=== PATIENT | female | born 1950 | race Caucasian/White ===

== ENCOUNTER 2018-09-27 21:19 | Observation (INO) | payer MEDICARE ==
[~2018-09-27] VITALS: Ht 154.9 cm; Wt 89.8 kg
[2018-09-27] MEDS ORDERED: CEFTRIAXONE SOD 1 GM VIAL IV SCH (21:45)
[2018-09-27] MEDS ORDERED: SODIUM CHLORIDE 0.9% 1000ML 1,000 ML IV SCH ×2 (21:45)
[2018-09-27] MEDS ORDERED: DIATRIZOATE MEGL/DIATRIZOA SOD 30 ML BTL PO ONE (21:46)
[2018-09-27 22:18] LABS: BASOPHILS % 0.5 % (0.0-1.0); EOSINOPHILS # (AUTO) 0.1 (0.0-0.4); EOSINOPHILS % 1.4 % (0.0-6.0); HEMATOCRIT 40.1 % (34.2-44.1); HEMOGLOBIN 13.2 g/dL (12.0-16.0); LYMPHOCYTES # (AUTO) 1.7 (1.0-3.2); LYMPHOCYTES % 21.2 % (18.0-39.1); MEAN CORPUSCULAR HEMOGLOBIN 29.4 pg (28-32); MEAN CORPUSCULAR HGB CONC 32.9 g/dL (31-35); MEAN CORPUSCULAR VOLUME 89.3 fL (81-99); MONOCYTES # (AUTO) 0.5 (0.2-0.8); MONOCYTES % 6.1 % (4.4-11.3); NEUTROPHILS # (AUTO) 5.6 (2.1-6.9); NEUTROPHILS % 70.4 % (38.7-80.0); PLATELET COUNT 263 x10e3/uL (140-360); RED BLOOD COUNT 4.49 x10e6/uL (3.6-5.1); RED CELL DISTRIBUTION WIDTH 13.2 % (11.7-14.4)
[2018-09-27 22:35] LABS: ALBUMIN 3.9 g/dL (3.5-5.0); ALBUMIN/GLOBULIN RATIO 1.1 (0.8-2.0); ANION GAP 20.2 mmol/L (8-16); CREATININE, SERUM 1.95 mg/dL (0.57-1.11); POTASSIUM 5.2 mmol/L (3.5-5.1)
[2018-09-27] MEDS ORDERED: CEFTRIAXONE SOD 1 GM/NS 50 ML 50 ML IV ONE (22:40)
--- NOTE | 2018-09-27 22:53 | NUR ---
AWARE OF CRITICAL RESULTS.
[2018-09-27] MEDS ORDERED: SODIUM CHLORIDE 0.9% 1000ML 1,000 ML IV ONE (23:00)
[2018-09-27] MEDS ORDERED: INSULIN REGULAR, HUMAN 100 UNIT/1 ML 3ML VIAL IV ONE (23:00)
[2018-09-27] MEDS ORDERED: ONDANSETRON HCL INJ 2 MG/ML VIAL IV STA (23:12)
[2018-09-28] MEDS ORDERED: CEFTRIAXONE SOD 1 GM VIAL IV SCH
--- NOTE | 2018-09-28 00:23 | Diagnostic Imaging Report ---
EXAM: CT ABDOMEN/PELVIS WO DATE: 09/27/2018 9:39 PM INDICATION: Abdominal pain COMPARISON: None TECHNIQUE: The abdomen and pelvis were scanned using a multidetector helical scanner. Coronal and sagittal reformations were obtained. CT low dose techniques were utilized, as applicable. IV Contrast: 0 ml Isovue 300/370 Oral contrast was administered. FINDINGS: Lack of IV contrast decreases sensitivity in evaluating abdominal and pelvic organs. LOWER THORAX: Incidental right 2 mm right fissural nodule and 3 mm right basilar subpleural nodule. Coronary and aortic calcified atherosclerosis. LIVER/BILIARY: No masses. No ductal dilatation. GALLBLADDER: Unremarkable SPLEEN: Unremarkable PANCREAS: Unremarkable ADRENALS: Mild thickening without discrete nodule KIDNEYS: No stones. No hydronephrosis. GI TRACT: No wall thickening or evidence of obstruction. Normal appendix. Diverticulosis. VESSELS: Moderate calcific atherosclerosis of the aorta and iliac arteries. PERITONEUM/RETROPERITONEUM: No free air or fluid LYMPH NODES: No lymphadenopathy REPRODUCTIVE ORGANS/BLADDER: Unremarkable SOFT TISSUES: No acute findings BONES: Degenerative changes, worse at L5-S1. IMPRESSION: No acute abnormality. Signed by: Dr Mirlande Daigle MD on 09/28/2018 12:20 AM
[2018-09-28 00:29] LABS: CLARITY,URINE CLOUDY (CLEAR); COLOR,URINE YELLOW (YELLOW); LEUKOCYTE ESTERASE ,URINE TRACE (NEGATIVE); NITRITE,URINE NEGATIVE (NEGATIVE)
[2018-09-28 00:30] LABS: BILIRUBIN,URINE NEGATIVE (NEGATIVE); KETONES,URINE NEGATIVE (NEGATIVE); PROTEIN,URINE DIPSTICK TRACE (NEGATIVE); URINE UROBILINOGEN 0.2 mg/dL (0.2 - 1)
[2018-09-28 00:45] LABS: BACTERIA,URINE MODERATE /HPF; EPITHELIAL CELLS,URINE FEW /LPF; TRANSITIONAL EPI CELLS,URINE FEW
[2018-09-28 00:46] LABS: RENAL EPITHELIAL CELLS,URINE FEW; YEAST,URINE FEW
--- OUTSIDE RECORDS SUMMARY | 2018-09-28 01:10 | XMS REPORT ---
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 Allergies, Adverse Reactions, Alerts This patient has no known allergies or adverse reactions. Medications This patient has no known medications. Results Test Description Test Time Test Comments Text Results Atomic Results Result Comments CT ABDOMEN/PELVIS WO 2018-09-28 00:01:00 [place] [address] Patient Name: JOSE CHRISTIANSON MR #: [id number] : 1950 Age/Sex: 68/F Req #: [id number] Adm Physician: Ordered by: CINDI BHARDWAJ MD Report #: [id number] Location: ER Room/Bed: Procedure: [id number] CT/CT ABDOMEN/PELVIS WO Exam Date: 09/27/18 Exam Time: 2331 REPORT STATUS: Signed EXAM: CT ABDOMEN/PELVIS WO DATE: 09/27/2018 9:39 PM INDICATION: Abdominal pain COMPARISON: None TECHNIQUE: The abdomen and pelvis were scanned using a multidetector helical scanner. Coronal and sagittal reformations were obtained. CT low dose techniques were utilized, as applicable. IV Contrast: 0 ml Isovue 300/370 Oral contrast was administered. FINDINGS: Lack of IV contrast decreases sensitivity in evaluating abdominal and pelvic organs. LOWER THORAX: Incidental right 2 mm right fissural nodule and 3 mm right basilar subpleural nodule. Coronary and aortic calcified atherosclerosis. LIVER/BILIARY: No masses. No ductal dilatation. GALLBLADDER: Unremarkable SPLEEN: Unremarkable PANCREAS: Unremarkable ADRENALS: Mild thickening without discrete nodule KIDNEYS: No stones. No hydronephrosis. GI TRACT: No wall thickening or evidence of obstruction. Normal appendix. Diverticulosis. VESSELS: Moderate calcific atherosclerosis of the aorta and iliac arteries. PERITONEUM/RETRO PERITONEUM: No free air or fluid LYMPH NODES: No lymphadenopathy REPRODUCTIVE ORGANS/BLADDER: Unremarkable SOFT TISSUES: No acute findings BONES: Degenerative changes, worse at L5-S1. IMPRESSION: No acute abnormality. Signed by: Dr Damian Daigle MD on 09/28/2018 12:20 AM Dictated By: DAMIAN DAIGLE MD Transcribed By: MAITE on 09/28/1819 COPY TO: CINDI BHARDWAJ MD
[2018-09-28 02:45] VITALS: BP 101/52
--- NOTE | 2018-09-28 02:45 | NUR ---
Patient is a new admit that arrived via wheelchair. patient is awake and talking. patient has been helped into the bed. bed is in lowest position and call botello is within reach. will continue to monitor patient.
[2018-09-28] MEDS ORDERED: SODIUM CHLORIDE 0.9% 1000ML 1,000 ML IV SCH (03:00)
--- NOTE | 2018-09-28 06:25 | Diagnostic Imaging Report ---
CHEST SINGLE (PORTABLE), 09/28/2018 1:26 AM Technique: CHEST SINGLE (PORTABLE) Comparison: None available. Clinical history: Shortness of breath Findings: Unremarkable portable appearance of the heart, mediastinum, lungs and pleural spaces. Calcified left lung granuloma. Impression: 1. Lines/Tubes: None 2. No acute abnormality. Signed by: Dr Mirlande Daigle MD on 09/28/2018 6:21 AM
--- NOTE | 2018-09-28 07:10 | NUR ---
pt alert resp even and unlabored, no distress noted at this time. pt able to make needs known, call light in reach
[2018-09-28 07:30] VITALS: BP 107/53
[2018-09-28 07:30] LABS: BASOPHILS % 0.4 % (0.0-1.0); EOSINOPHILS # (AUTO) 0.2 (0.0-0.4); EOSINOPHILS % 2.9 % (0.0-6.0); HEMATOCRIT 33.1 % (34.2-44.1); HEMOGLOBIN 10.9 g/dL (12.0-16.0); MEAN CORPUSCULAR HEMOGLOBIN 29.3 pg (28-32); MEAN CORPUSCULAR HGB CONC 32.9 g/dL (31-35); MONOCYTES # (AUTO) 0.5 (0.2-0.8); MONOCYTES % 6.7 % (4.4-11.3); NEUTROPHILS # (AUTO) 3.5 (2.1-6.9); NEUTROPHILS % 48.7 % (38.7-80.0); PLATELET COUNT 175 x10e3/uL (140-360); RED BLOOD COUNT 3.72 x10e6/uL (3.6-5.1); RED CELL DISTRIBUTION WIDTH 13.2 % (11.7-14.4)
[2018-09-28 08:03] VITALS: BP 107/53
[2018-09-28 08:03] LABS: ALBUMIN 3.1 g/dL (3.5-5.0); ALBUMIN/GLOBULIN RATIO 1.1 (0.8-2.0); ANION GAP 15.4 mmol/L (8-16); CALCIUM 8.4 mg/dL (8.4-10.2); CREATININE, SERUM 1.33 mg/dL (0.57-1.11); POTASSIUM 4.4 mmol/L (3.5-5.1)
[2018-09-28 08:32] LABS: CREATINE KINASE MB 2.5 ng/mL (0-5.0)
--- NOTE | 2018-09-28 11:15 | NUR ---
pt discharged home, with prescriptions and family member at bedside, pt and family member educated on medications. iv site removed catheter tip intact.
--- NOTE | 2018-09-28 11:21 | NUR ---
Met with pt and her daughter. Pt and daughter (and family) all live together. Pt has no home health and no DME. Denies any needs. VAZQUEZ letter explained and pt verbalized understanding and signed. Copy to patient, and original placed in pt chart.
--- NOTE | 2018-09-28 11:23 | NUR ---
Daughter is Pari Hsu [phone]. CM did confirm demographic info with pt.
[2018-09-28 11:24] VITALS: BP 111/56
--- NOTE | 2018-09-28 11:53 | History and Physical ---
Patient placed in observation. OBSERVATION DATE: September 28, 2018 PCP: Dr. Dante Aviles. CHIEF COMPLAINT: Hyperglycemia and urinary tract infection. HISTORY OF PRESENT ILLNESS: A 68-year-old female with urinary tract infection. Blood sugar is elevated at 336. The patient apparently was on NovoLog and Levemir which she did not take at home. The patient had not seen Dr. Abdoul Crump for her diabetes. PAST MEDICAL HISTORY: Diabetes type 2 on insulin therapy and obesity. PAST SURGICAL HISTORY: Noncontributory. SOCIAL HISTORY: Patient does not smoke or use alcohol. No recreational drugs. ALLERGIES: TO NO KNOWN ALLERGY. HOME MEDICATIONS: Levemir and NovoLog insulin. REVIEW OF SYSTEMS: Suprapubic discomfort, dysuria, increasing urinary frequency. PHYSICAL EXAMINATION VITAL SIGNS: Temperature is 97, blood pressure 107/53, pulse rate 64, respirations 18. GENERAL: The patient is in no acute distress. HEENT: Normocephalic, atraumatic, anicteric. NECK: Supple grossly. PULMONARY: Clear. CARDIOVASCULAR: Regular rate and rhythm. ABDOMEN: Obese. EXTREMITIES: No cyanosis or edema. NEUROLOGIC: No focal deficit. LABORATORY: Sodium 134, potassium 4.4, chloride 100, bicarb 23, BUN 26, creatinine 1.3. Glucose is 336. WBC is 7.2, hemoglobin 10.9, hematocrit 33, platelets 175. IMPRESSION 1. Uncontrolled diabetes type 2 on insulin therapy, noncompliant. 2. Urinary tract infection associated with bacteria and yeast on urinalysis with moderate bacteria and leukocyte esterase is trace. PLAN: Discharge the patient home. Cipro 500 mg twice a day for 10 days. Diflucan 100 mg daily for 7 days. Review patient's Levemir and NovoLog. Discussed with the patient and patient's daughter who will care for the patient from now on her compliance with her insulin. Job#: [id number] ROAXNE
--- NOTE | 2018-09-28 14:32 | Discharge Summary ---
Patient is discharged today, September 28, 2018. Please review my history and physical. The patient will go home today. Medications given. 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 Patient expressed understanding. She will go home today. I will refill her Levemir and NovoLog for 3 months. I will also give the patient Diflucan and Cipro for her bladder infection. Patient is stable and discharged home. Job#: [id number] LEVI
[2018-09-28] MEDS ORDERED: CEFTRIAXONE SOD 1 GM/NS 50 ML 50 ML IV SCH (22:30)
== END 2018-09-28 11:29 | disposition home or self-care (01) ==
LOC: ER 21:19 → ERHOLD 09-28 01:07 → IMCU 09-28 03:08
PROVIDERS: ADMIT Internal Medicine; ATTEND Internal Medicine
DX: E11.65 Type 2 diabetes mellitus with hyperglycemia (principal); Z79.4 Long term (current) use of insulin; T38.3X6A Underdosing of insulin and oral hypoglycemic [antidiabetic] drugs, initial encounter; B37.49 Other urogenital candidiasis; N39.0 Urinary tract infection, site not specified; E66.9 Obesity, unspecified; Z68.37 Body mass index [BMI] 37.0-37.9, adult
CPT/HCPCS: 36415 ×2; 71045; 74176; 80053 ×2; 81001; 82550; 82553; 82948; 83605 ×2; 83690; 84484; 85025 ×2; 87040; 93005; 99284; G0378; J0696 ×2; J2405; J7030 ×2; Q9663

== ENCOUNTER 2022-01-06 03:33 | Emergency (ER) | payer MEDICARE, OTHER ==
[~2022-01-06] VITALS: Ht 165.1 cm; Wt 86.6 kg
[~2022-01-06 03:33] MED LIST: ALPRAZOLAM0.5 MG PO; DILTIAZEM 24HR240 MG PEG; FLUOXETINE HCL20 MG PO; GLIPIZIDE5 MG PO; HYDROCHLOROTHIA25 MG PO; LISINOPRIL10 MG PO; METOPROLOL TART50 MG PO; PRAVACHOL40 MG PO; PROTONIX20 MG PO; TEMAZEPAM15 MG PO; albuterol sulfate INH
[2022-01-06] MEDS ORDERED: ACETAMINOPHEN 325 MG TAB PO ONE (04:00)
[2022-01-06] MEDS ORDERED: TETANUS/DIPHTHERIA TOX ADULT 0.5 ML SYR IM ONE (04:00)
[2022-01-06 04:20] LABS: BASOPHILS % 0.6 % (0.0-1.0); EOSINOPHILS # (AUTO) 0.2 (0.0-0.4); EOSINOPHILS % 2.8 % (0.0-6.0); HEMATOCRIT 37.6 % (34.2-44.1); LYMPHOCYTES # (AUTO) 2.1 (1.0-3.2); MEAN CORPUSCULAR HEMOGLOBIN 29.5 pg (28-32); MEAN CORPUSCULAR HGB CONC 31.9 g/dL (31-35); MEAN CORPUSCULAR VOLUME 92.4 fL (81-99); MONOCYTES # (AUTO) 0.4 (0.2-0.8); MONOCYTES % 5.8 % (4.4-11.3); NEUTROPHILS # (AUTO) 3.7 (2.1-6.9); NEUTROPHILS % 57.6 % (38.7-80.0); PLATELET COUNT 301 x10e3/uL (140-360); RED BLOOD COUNT 4.07 x10e6/uL (3.6-5.1); RED CELL DISTRIBUTION WIDTH 12.7 % (11.7-14.4)
[2022-01-06 04:39] LABS: ALBUMIN 3.7 g/dL (3.5-5.0); ALBUMIN/GLOBULIN RATIO 1.2 (0.8-2.0); ANION GAP 14.2 mmol/L (8-16); CALCIUM 8.7 mg/dL (8.4-10.2); CREATININE, SERUM 1.71 mg/dL (0.57-1.11); POTASSIUM 4.2 mmol/L (3.5-5.1)
== END 2022-01-06 07:30 | disposition other institution (70) ==
LOC: ER 03:51
DX: S02.2XXA Fracture of nasal bones, initial encounter for closed fracture (principal); S01.412A Laceration without foreign body of left cheek and temporomandibular area, initial encounter; S05.12XA Contusion of eyeball and orbital tissues, left eye, initial encounter; W01.198A Fall on same level from slipping, tripping and stumbling with subsequent striking against other object, initial encounter; W01.0XXA Fall on same level from slipping, tripping and stumbling without subsequent striking against object, initial encounter; Y93.01 Activity, walking, marching and hiking; Y92.008 Other place in unspecified non-institutional (private) residence as the place of occurrence of the external cause; E11.65 Type 2 diabetes mellitus with hyperglycemia; I10 Essential (primary) hypertension; J44.9 Chronic obstructive pulmonary disease, unspecified; F41.9 Anxiety disorder, unspecified; Z20.822 Contact with and (suspected) exposure to COVID-19; Z87.19 Personal history of other diseases of the digestive system
CPT/HCPCS: 12013; 36415; 70450; 70486; 72125; 73130 ×2; 80053; 85025; 90471; 90714; 93005; 99284; U0002

== ENCOUNTER 2025-04-30 05:26 | Inpatient (IN) | payer MEDICARE ==
[~2025-04-30] VITALS: Ht 165.1 cm; Wt 86.2 kg
[~2025-04-30 05:26] MED LIST changes: -DILTIAZEM 24HR240 MG PEG; +DILTIAZEM 24HR240 MG PO; +NOVOLOG100 UNIT/1 SC; +SOLIQUA 100 UNIT3 ML SQ
[2025-04-30 05:27] VITALS: TEMP 98.1
[2025-04-30] MEDS: Morphine 4mg INJECTION 4 MG/ML INJ IV ONE (06:05)
[2025-04-30] MEDS: ONDANSETRON HCL INJ 2MG/ML 2ML 2 MG/ML VIAL IV STA ×2 (06:05→07:08)
[2025-04-30] MEDS: SODIUM CHLORIDE 0.9% 1000ML 1,000 ML IV STA (06:05)
[2025-04-30 06:11] LABS: EST GLOMERULAR FILTRATION RATE 53.0 ML/MIN (>=60)
[2025-04-30 06:13] LABS: BASOPHILS % 0.4 % (0.0-1.0); EOSINOPHILS % 2.6 % (0.0-6.0); LYMPHOCYTES % 27.8 % (18.0-39.1); MONOCYTES % 5.8 % (4.4-11.3); NEUTROPHILS % 62.9 % (38.7-80.0); RED CELL DISTRIBUTION WIDTH 13.5 % (11.7-14.4)
[2025-04-30] MEDS ORDERED: IOPAMIDOL 370 MG/ML 100 ML INFUS..BTL INJ ONE (06:19)
[2025-04-30] MEDS ORDERED: ONDANSETRON HCL INJ 2MG/ML 2ML 2 MG/ML VIAL ONE (07:06)
[2025-04-30] MEDS: DICYCLOMINE HCL 20 MG/2 ML VIAL IM ONE (08:07)
[2025-04-30] MEDS: PROMETHAZINE 12.5MG/ NACL 0.9% 12.5 MG/50 ML BAG IV ONE (08:07)
[2025-04-30] MEDS: INSULIN LISPRO 100 UNIT/1 ML 3ML VIAL SQ SCH (08:15)
[2025-04-30] MEDS ORDERED: DEXTROSE 50% SYRINGE 50 ML IV PRN ×2 (08:15→17:00)
[2025-04-30] MEDS: SODIUM CHLORIDE 0.9% 1000ML 1,000 ML IV SCH (10:17)
[2025-04-30 13:15] VITALS: PULSE 68; RESP 19
[2025-04-30 15:50] VITALS: BP 173/85; PULSE 69; RESP 20; TEMP 98.2; O2SAT 98
[2025-04-30 16:20] VITALS: BP 173/85; PULSE 69; RESP 20; TEMP 98.2; O2SAT 98
[2025-04-30] MEDS ORDERED: POTASSIUM CHLORIDE 20 MEQ TAB CR PO PRN (17:00)
[2025-04-30] MEDS ORDERED: ACETAMINOPHEN 325 MG TAB PO PRN (17:00)
[2025-04-30] MEDS ORDERED: MELATONIN 5 MG TABLET PO PRN (17:00)
[2025-04-30] MEDS ORDERED: DOCUSATE SODIUM 100 MG CAP PO PRN (17:00)
[2025-04-30] MEDS ORDERED: BENZONATATE 100 MG CAP PO PRN (17:00)
[2025-04-30] MEDS ORDERED: DIPHENHYDRAMINE HCL 25 MG CAP PO PRN (17:00)
[2025-04-30] MEDS ORDERED: ALBUTEROL/IPRATROPIUM 3 ML NEB NEB PRN (17:00)
[2025-04-30] MEDS ORDERED: LIDOCAINE 4% PATCH TP PRN (17:00)
[2025-04-30] MEDS ORDERED: SIMETHICONE 80 MG CHEW PO PRN (17:00)
[2025-04-30] MEDS: HYDROMORPHONE 1MG/1ML INJ IV PRN (17:02)
[2025-04-30 20:00] VITALS: BP 143/62; PULSE 69; RESP 18; TEMP 97.8; O2SAT 97
[2025-04-30 20:13] VITALS: BP 173/85; PULSE 69; RESP 20; TEMP 98.2; O2SAT 98
[2025-04-30] MEDS ORDERED: INSULIN GLARGINE 100 UNITS/ML VIAL SQ SCH (21:00)
[2025-04-30] MEDS: INSULIN GLARGINE 100 UNITS/ML VIAL SQ SCH (21:08)
[2025-05-01] VITALS (7 sets, daily range): BP systolic 125–165; BP diastolic 61–110; PULSE 74–86; RESP 17–20; TEMP 97.3–99.4; O2SAT 92–97
[2025-05-01 06:48] LABS: BASOPHILS % 0.3 % (0.0-1.0); EOSINOPHILS % 2.2 % (0.0-6.0); LYMPHOCYTES % 20.8 % (18.0-39.1); MONOCYTES % 5.1 % (4.4-11.3); NEUTROPHILS % 71.4 % (38.7-80.0); RED CELL DISTRIBUTION WIDTH 14.0 % (11.7-14.4)
[2025-05-01 07:54] LABS: CHOL/HDL RATIO 3.5 (3.0-3.6); EST GLOMERULAR FILTRATION RATE 65.0 ML/MIN (>=60); LDL CHOLESTEROL 85.0 MG/DL (60-130)
[2025-05-01] MEDS: PANTOPRAZOLE SOD 40 MG TABEC PO SCH (08:51)
[2025-05-01] MEDS: FLUOXETINE HCL 20 MG CAP PO SCH (08:51)
[2025-05-01] MEDS: SIMVASTATIN 20 MG TAB PO SCH (08:51)
[2025-05-01] MEDS: METOPROLOL TARTRATE 50 MG TAB PO SCH (08:51)
[2025-05-01] MEDS: DILTIAZEM HCL CR 120MG TAB PO SCH (08:53)
[2025-05-01] MEDS: PROMETHAZINE 12.5MG/ NACL 0.9% 12.5 MG/50 ML BAG IV PRN (12:57)
[2025-05-01] MEDS: ONDANSETRON HCL INJ 2MG/ML 2ML 2 MG/ML VIAL IV PRN (17:44)
[2025-05-01] MEDS: ENOXAPARIN SOD INJ 40 MG/0.4 ML SYR SC SCH (19:03)
[2025-05-02] VITALS (8 sets, daily range): BP systolic 124–153; BP diastolic 53–98; PULSE 52–78; RESP 18–21; TEMP 97–98.6; O2SAT 95–100
[2025-05-02] MEDS: INSULIN LISPRO 100 UNIT/1 ML 3ML VIAL SQ SCH (10:34)
[2025-05-02] MEDS: FUROSEMIDE INJ 10 MG/ML 4 ML VIAL IV SCH (18:11)
[2025-05-03] VITALS (9 sets, daily range): BP systolic 115–178; BP diastolic 48–78; PULSE 55–63; RESP 17–19; TEMP 97.3–99.3; O2SAT 97–100
[2025-05-03 05:35] LABS: BASOPHILS % 0.6 % (0.0-1.0); EOSINOPHILS % 4.1 % (0.0-6.0); LYMPHOCYTES % 28.8 % (18.0-39.1); MONOCYTES % 6.6 % (4.4-11.3); NEUTROPHILS % 59.6 % (38.7-80.0); RED CELL DISTRIBUTION WIDTH 13.9 % (11.7-14.4)
[2025-05-03 05:53] LABS: EST GLOMERULAR FILTRATION RATE 48.0 ML/MIN (>=60)
[2025-05-03] MEDS: FUROSEMIDE INJ 10 MG/ML 4 ML VIAL IV SCH (06:03)
[2025-05-03] MEDS ORDERED: MIDAZOLAM HCL 2 MG/2 ML VIAL ONE (17:51)
[2025-05-03] MEDS ORDERED: ROCURONIUM BROMIDE 1 ML IV ONE (17:51)
[2025-05-03] MEDS ORDERED: FENTANYL CITRATE/PF 100MCG/2 ML INJ ONE (17:51)
[2025-05-03] MEDS ORDERED: EPHEDRINE SULFATE INJ 50 MG/ML VIAL ONE (18:11)
[2025-05-03] MEDS ORDERED: METOCLOPRAMIDE HCL 10 MG/2ML VIAL ONE (18:12)
[2025-05-03] MEDS ORDERED: DEXAMETHASONE SOD PHOS INJ 4 MG/ML SDV ONE (18:12)
[2025-05-03] MEDS ORDERED: ACETAMINOPHEN 1000 MG/100 ML 100 ML IV ONE (18:19)
[2025-05-03] MEDS ORDERED: GLYCOPYRROLATE INJ 0.2 MG/ML VIAL ONE (18:26)
[2025-05-03] MEDS ORDERED: KETOROLAC TROMETHAMINE 30 MG/ML VIAL ONE (18:47)
[2025-05-03] MEDS ORDERED: SUGAMMADEX SODIUM 200 MG/2 ML VIAL IV ONE (18:47)
[2025-05-03] MEDS ORDERED: HYDRALAZINE HCL 20 MG/ML VIAL ONE (18:56)
[2025-05-03] MEDS ORDERED: ONDANSETRON HCL INJ 2MG/ML 2ML 2 MG/ML VIAL ONE (18:56)
[2025-05-03] MEDS ORDERED: ACETAMINOPHEN 1000 MG/100 ML IV PRN (19:15)
[2025-05-03] MEDS ORDERED: HYDROCODONE/APAP 7.5MG-325MG 1 EA TAB PO PRN (19:15)
[2025-05-04] VITALS (10 sets, daily range): BP systolic 120–154; BP diastolic 57–78; PULSE 58–66; RESP 17–20; TEMP 97–97.9; O2SAT 100
[2025-05-04] MEDS: ONDANSETRON HCL INJ 2MG/ML 2ML 2 MG/ML VIAL IV PRN (05:10)
[2025-05-04] MEDS: SODIUM CHLORIDE 0.9% 1000ML 1,000 ML IV SCH (05:15)
[2025-05-04 06:15] LABS: BASOPHILS % 0.1 % (0.0-1.0); EOSINOPHILS % 0.0 % (0.0-6.0); LYMPHOCYTES % 7.0 % (18.0-39.1); MONOCYTES % 3.2 % (4.4-11.3); NEUTROPHILS % 89.1 % (38.7-80.0); RED CELL DISTRIBUTION WIDTH 14.1 % (11.7-14.4)
[2025-05-04 06:43] LABS: EST GLOMERULAR FILTRATION RATE 34.0 ML/MIN (>=60)
[2025-05-04] MEDS: PIPERACILLIN/TAZOBACTAM 3.375 GM VIAL ONE (19:04)
[2025-05-04] MEDS: ALBUTEROL/IPRATROPIUM 3 ML NEB ONE (20:01)
[2025-05-04] MEDS: SODIUM CHLORIDE 0.9% 100 ML ONE (20:01)
[2025-05-04] MEDS: INSULIN GLARGINE 100 UNITS/ML VIAL SQ SCH (20:19)
[2025-05-05] VITALS (8 sets, daily range): BP systolic 139–215; BP diastolic 50–85; PULSE 63–67; RESP 18–20; TEMP 97.4–98.6; O2SAT 95–100
[2025-05-05 06:39] LABS: EST GLOMERULAR FILTRATION RATE 49.0 ML/MIN (>=60)
[2025-05-05] MEDS: HYDRALAZINE HCL 20 MG/ML VIAL IV PRN (06:44)
[2025-05-05] MEDS: LOSARTAN POTASSIUM 100 MG TAB PO SCH (12:00)
== END 2025-05-05 15:44 | disposition home or self-care (01) | DRG 417 ==
LOC: ER 05:33 → ERHOLD 08:17 → MED/SURG2 16:46
PROVIDERS: ADMIT Internal Medicine; ATTEND Internal Medicine
PROC: 0FT44ZZ Resection of Gallbladder, Percutaneous Endoscopic Approach (ICD-10-PCS; principal; 2025-05-03 17:59)
DX: K80.10 Calculus of gallbladder with chronic cholecystitis without obstruction (principal); J81.0 Acute pulmonary edema; I10 Essential (primary) hypertension; E11.9 Type 2 diabetes mellitus without complications; E78.5 Hyperlipidemia, unspecified; J44.9 Chronic obstructive pulmonary disease, unspecified; F41.9 Anxiety disorder, unspecified; I35.0 Nonrheumatic aortic (valve) stenosis; F32.A Depression, unspecified; R11.2 Nausea with vomiting, unspecified; Z79.02 Long term (current) use of antithrombotics/antiplatelets; Z79.82 Long term (current) use of aspirin; Z79.4 Long term (current) use of insulin; Z79.84 Long term (current) use of oral hypoglycemic drugs; Z98.62 Peripheral vascular angioplasty status; Z85.118 Personal history of other malignant neoplasm of bronchus and lung; Z90.2 Acquired absence of lung [part of]; Z87.891 Personal history of nicotine dependence; Z88.5 Allergy status to narcotic agent
CPT/HCPCS: 36415; 74177; 80048; 80053; 80061; 82550; 82948; 83036; 83690; 83735; 84443; 84484; 85014; 85018; 85025; 88304; 93005; 93306; 94760; 94799; 96372; 99284; C1766; J0360; J1100; J1171; J1650; J1815; J1885; J1938; J2250; J2270; J2405; J2470; J2543; J2550; J2765; J7030; J7050; Q9967